=== PATIENT | male | born 1965 | race Caucasian/White ===

== ENCOUNTER 2020-01-29 00:43 | Inpatient (IN) | payer SELFPAY ==
[2020-01-29] MEDS ORDERED: Acetaminophen 325 MG TAB PO PRN (01:23)
[2020-01-29] MEDS ORDERED: Guaifenesin DM 100-10/5 ML UDCUP PO PRN (01:23)
[2020-01-29] MEDS ORDERED: Sodium Chloride 0.9% 1,000 ML IV SCH (01:30)
--- NOTE | 2020-01-29 02:17 | HP ---
CHIEF COMPLAINT: Cough, fever, and body aches. HISTORY OF PRESENT ILLNESS: Mr. Braden is a 54-year-old male with no significant past medical history, presented to outside emergency room with cough, fever for 2 weeks. The patient started having body aches and sore throat for last 2 days. The fever was as high as 103.4. The patient was found to have right upper lobe lung mass. The patient has a long history of cigarette smoking. In emergency room, COVID test was done. The patient was transferred to [facility] Emergency Room for further management and admission. PAST MEDICAL HISTORY: No significant past medical history. PAST SURGICAL HISTORY: Appendectomy. SOCIAL HISTORY: Drinks socially, former drug user, abuses marijuana, abuses methamphetamine. The patient currently uses tobacco, smokes cigarettes. ALLERGIES: NO KNOWN ALLERGIES. CURRENT MEDICATIONS: None. FAMILY HISTORY: Reviewed and noncontributory. REVIEW OF SYSTEMS: Review of 14 systems negative except what is mentioned in history of present illness. PHYSICAL EXAMINATION: GENERAL: The patient is awake, alert, in mild distress. VITAL SIGNS: T-max was 103, blood pressure 109/61, pulse is 77. Current temperature is 99.4, pulse oximetry 99% on room air. His respiratory rate is 17. HEAD AND NECK: Normocephalic, atraumatic. NECK: Supple. No JVD. CHEST: Decreased air entry bilaterally. HEART: S1 and S2, regular. ABDOMEN: Soft, nontender. Bowel sounds present. NEUROLOGIC: Awake, alert. No focal deficits. PSYCH: Unable to assess. EXTREMITIES: No clubbing, no cyanosis. GENITOURINARY: No suprapubic tenderness. No flank tenderness. LABORATORY DATA: CT of the chest done at an outside emergency room shows 2.7 cm right upper lobe mass. Sodium is 133, BUN is 14, creatinine 1.0, glucose 117. WBC count is 18.2, hemoglobin 14.1, platelets 441. ASSESSMENT: 1. Sepsis. 2. Pneumonia ?postobstructive. 3. Lung mass. 4. Suspected COVID infection. The patient is having sore throat, body aches, fever and chills. COVID test was done at an outside emergency room before being transferred here. 5. Cigarette smoker. PLAN: 1. Admit. 2. Septic workup. 3. Continue with IV antibiotics, azithromycin and ceftriaxone for now. 4. Isolation precautions. The patient is placed on droplet and contact isolation. 5. COVID-19 test was done at outside emergency facility. 6. To consult Pulmonary in a.m. for evaluation and further recommendations. 7. DVT prophylaxis as appropriate. 8. Expected length of stay 2 midnights or more. Job ID: [id number]
[2020-01-29 05:46] LABS: Hemoglobin 13.8 g/dL (14.0-18.0); Mean Corpuscular HGB CONC 33.9 g/dL (32.0-36.0); Mean Corpuscular Hemoglobin 33.7 pg (27.0-31.0); Mean Corpuscular Volume 99.5 fL (78.0-98.0); Mean Platelet Volume 6.2 fL (7.4-10.4); Platelet Count 379 thou/uL (130-400); RBC Distribution Width 12.8 % (11.5-14.5); White Blood Cell (WBC) Count 18.8 thou/uL (4.8-10.8)
[2020-01-29 06:12] LABS: Band 21 % (5-11); Lymphocytes 3 % (21-51); MDiff Complete? YES; Monocytes 6 % (0-10); Neutrophil 70 % (42-75)
[2020-01-29] MEDS ORDERED: FLU VACC QS2019-20(6MOS UP)/PF 60 MCG/0.5 ML SYRINGE IM ONE (09:00)
[2020-01-29] MEDS ORDERED: Prevnar 13-Val Conj/PF 0.5 ML SYRINGE IM ONE (09:00)
[2020-01-29] MEDS ORDERED: PROVENTIL INHALER 6.7 G (200 INHALATIONS) INH PRN (11:57)
--- NOTE | 2020-01-29 13:35 | CON ---
DATE OF CONSULTATION: 01/29/2020 SERVICE: Pulmonary Medicine. REASON FOR CONSULTATION: Pulmonary mass. HISTORY OF PRESENT ILLNESS: The patient is a 54-year-old white male with past medical history significant for tobacco abuse. About a week ago, he started having fevers and chills. He had a cough and was bringing up phlegm. He presented to the emergency department, where he was suspected of having a pulmonary mass based on the chest x-ray. A CT scan showed an infiltrate. There was no mass there. He was told he probably had COVID, and lung cancer. He was then admitted to the hospital. He reports no history of medical problems, but has a remote history of polysubstance drug abuse. Last time, he used anything, was about 2 months ago. He currently denies any fevers, chills, nausea, or vomiting since he has been in the hospital. His appetite is good. His breathing is little bit short whenever he gets around, but close to baseline for him. Apparently, for the last several years, he has noticed significant dyspnea with more strenuous activity, which has been progressive in nature. PAST MEDICAL HISTORY: None. PAST SURGICAL HISTORY: Appendectomy. SOCIAL HISTORY: He drinks very rarely. He smokes about a pack on a daily basis, and has greater than 40 pack-year history of smoking. He uses marijuana frequently, and has used methamphetamine. Most recently, was 2 months ago. He denies any exposure to chemicals, dust, asbestos, or tuberculosis otherwise. FAMILY HISTORY: Noncontributory. ALLERGIES: NO KNOWN DRUG ALLERGIES. MEDICATIONS: List of his inpatient medications was reviewed. No specific updates were made at this time. REVIEW OF SYSTEMS: General; head, ears, eyes, nose, throat; cardiovascular; respiratory; GI; musculoskeletal; neurologic; and skin are negative except as mentioned in the HPI. PHYSICAL EXAMINATION: VITAL SIGNS: Afebrile. Pulse 62, blood pressure 115/66, respirations 20, saturation 100%, currently on room air. GENERAL: The patient is awake and alert, in no apparent distress. LUNGS: Wonderful air entry. There is a slightly prolonged expiratory phase. A little bit of wheezing is present on forced exhalation. He has some unilateral crackles in the right upper to mid lung zone field. HEART: Normal rate. Regular. ABDOMEN: Soft, nontender, nondistended. Bowel sounds are positive. MUSCULOSKELETAL: No cyanosis or clubbing. No pitting in the bilateral lower extremities. NEUROLOGIC: Grossly nonfocal. LABORATORY DATA: WBC 18.8 with 21% bands. Band count is gently up trending. Basic metabolic profile and liver function studies are unremarkable. Lactate is originally 3.1. Group A Strep is negative. Influenza A and B are negative. IMAGING DATA: 1. Chest x-ray demonstrates right hilar infiltrate and/or mass. 2. CT of the chest clearly defines this is an infiltrate. It is in the right upper lobe, in the posterior region, associated with where I would expect an aspiration-related change to occur. Additionally, he has a little bit of emphysema present. ASSESSMENT: 1. Community-acquired pneumonia. 2. Severe sepsis, resolved. 3. Tobacco abuse. 4. Emphysema based on imaging alone. DISCUSSION AND PLAN: The likelihood is that this patient has cancer and/or COVID is quite low. That being said, we will maintain isolation precautions until the COVID comes back in a definitive fashion. Either way, he does not require inpatient status any longer. He can be converted over to p.o. azithromycin times a total duration of 5 days, and p.o. Omnicef to complete a 7-day course. He requires a repeat chest x-ray in 4 to 6 weeks in the outpatient setting. At that point, he can establish with a primary care physician. I have asked him to discuss the possibility of COPD and whether or not he would be a candidate for medications moving forward with that provider as well as I believe he may benefit from a long-acting therapy. In the meantime, he can be discharged with an albuterol HFA if it provides him with any inpatient benefit. I have counseled him to self quarantine when he is discharged from the hospital until he hears the results of his COVID study. If the patient started developing higher oxygen requirements, or becomes clinically more sick, please notify me, but at this point, he has no further requirements for Inpatient Pulmonary or Critical Care opinion, and I will sign off. Please call with additional questions or concerns through time. Job ID: [id number]
[2020-01-29] MEDS ORDERED: cefTRIAXone\\ROCEPHIN 1 GM in Sodium Chloride 0.9% 100 ML IVPB SCH (22:00)
[2020-01-29] MEDS ORDERED: Azithromycin 500 MG in Sodium Chloride 0.9% 250 ML 250 ML IVPB SCH (23:00)
[2020-01-30 05:38] VITALS: BP 143/90; TEMP 98.4
--- NOTE | 2020-01-30 07:58 | PRG ---
DATE OF SERVICE: 01/30/2020 SERVICE: Pulmonary Medicine. INTERVAL HISTORY: The patient actually indicates that he is feeling much improved. Denies any shortness of breath, fevers, or chills overnight. He has been up walking to the bathroom and back without difficulty. Otherwise, he feels like he has returned to his usual state of health. PHYSICAL EXAMINATION: VITAL SIGNS: Afebrile, pulse 60, blood pressure 143/90, respirations 16, and saturation 100% on room air. GENERAL: The patient is awake and alert, in no apparent distress. LUNGS: Good air entry bilaterally without prolonged expiratory phase or wheezing present. HEART: Normal rate. Regular. ABDOMEN: Soft, nontender, and nondistended. Bowel sounds are positive. MUSCULOSKELETAL: No cyanosis or clubbing. There is no pitting in the bilateral lower extremities. NEUROLOGICAL: Grossly nonfocal. LABORATORIES: COVID is positive. Respiratory virus panel and influenza A and B are all unremarkable. ASSESSMENT: 1. Community-acquired pneumonia, resolving. 2. Severe sepsis, resolved. 3. Tobacco abuse. 4. Emphysema based on imaging alone. DISCUSSION AND PLAN: The patient indicates that he is feeling fantastic at this point. From my perspective, he can complete a five five day course of azithromycin and a 7- day course of Omnicef. He can be transitioned out of the hospital. He needs a repeat chest x-ray in 4 to 6 weeks in the outpatient basis to verify this infiltrate has resolved. Along the way, if things get worse, he develops increasing cough or difficulty breathing, I have instructed him to return to the emergency department. Job ID: [id number]
--- NOTE | 2020-01-30 11:00 | DIS ---
DATE OF ADMISSION: 01/29/2020 DATE OF DISCHARGE: 01/30/2020 DISCHARGE DIAGNOSES: 1. Severe sepsis secondary to pneumonia, resolving. 2. Community-acquired pneumonia, suspected gram-positive cocci. 3. Tobacco abuse. CONSULTATIONS: Dr. Graham with Pulmonology Service. PERTINENT LABORATORY AND X-RAY FINDINGS: Sodium 133. Lactic acid level 3.1. CBC showed a white blood cell count 18.8, hemoglobin 14, hematocrit 41, MCV 99.5. Blood cultures x2 dated 01/28/2020, showed no growth to date. Influenza A and B antigen negative on 01/28/2020. Group A Streptococcus screen negative on 01/28/2020. Respiratory viral panel dated on 01/28/2020 negative. COVID-19, PCR pending. Portable chest x-ray dated 01/28/2020 showed questionable mass in the right upper lobe. CT of the chest dated 01/28/2020 showed right upper lobe consolidation with peripheral ground-glass opacities. HOSPITAL COURSE: The patient was initially admitted after presenting with fever, cough, shortness of breath with chest imaging showing questionable infiltrate in the right upper lobe versus mass. The patient was placed on broad-spectrum IV antibiotic therapy after meeting severe sepsis criteria, treated with azithromycin and Rocephin. The patient received general supportive management in conjunction with sepsis protocol, stabilizing in less than [address] imaging of the chest was performed showing infiltrate in the right upper lobe in no specific or dominant mass. The patient was evaluated by Pulmonology Service with recommendations to treat for infectious process and repeat chest imaging in 6 weeks after discharge. The patient was also evaluated for potential COVID-19 with final PCR test pending at the time of this dictation. Overall, the patient did remain clinically stable during the hospital course, tolerating regular oral intake with stable vital signs. I have examined the patient at the time of discharge and discussed followup instructions. The patient verbalized understanding and in agreement, ready for discharge on 01/30/2020. DISCHARGE MEDICATIONS: 1. Azithromycin 250 mg p.o. daily x5 days. 2. Cefdinir 300 mg p.o. b.i.d. x7 days. 3. Albuterol sulfate HFA 2 puffs inhaled q.4 hours p.r.n. FOLLOWUP: The patient to establish care with local [facility] or [facility] in [facility] after discharge. SPECIAL INSTRUCTIONS: Repeat chest x-ray in 6 weeks after discharge. CONDITION ON DISCHARGE: Stable. ACTIVITY: Ad-raymond. Recommend isolation at home with quarantine, pending final COVID-19 results. DIET: Regular. CODE STATUS: Full. DISPOSITION: Home on 01/30/2020. TIME SPENT: Total time preparing and coordinating discharge, 33 minutes. Job ID: [id number]
== END 2020-01-30 12:33 | disposition home or self-care (01) | DRG 871 ==
LOC: ERS 00:43 → T4-B 01:24
PROVIDERS: ADMIT Internal Medicine; ATTEND Internal Medicine
DX: A41.9 Sepsis, unspecified organism (principal); J18.9 Pneumonia, unspecified organism; R65.20 Severe sepsis without septic shock; F17.210 Nicotine dependence, cigarettes, uncomplicated; F15.10 Other stimulant abuse, uncomplicated; F12.10 Cannabis abuse, uncomplicated; J43.9 Emphysema, unspecified; R91.8 Other nonspecific abnormal finding of lung field; Z90.49 Acquired absence of other specified parts of digestive tract
CPT/HCPCS: 85025; J0456; J0696; J3490; J7050